=== PATIENT | male | born 1950 | race Caucasian/White ===

== ENCOUNTER 2017-09-13 18:24 | Observation (INO) | payer MEDICARE ==
[~2017-09-13] VITALS: Ht 182.9 cm; Wt 122.2 kg
[2017-09-13] MEDS ORDERED: GLUCOPHAGE500 MG/TAB PO (18:48)
[2017-09-13] MEDS ORDERED: NORCO 325 MG-7.1 TAB PO (18:48)
[2017-09-13] MEDS ORDERED: PRINIVIL20 MG PO (18:49)
[2017-09-13] MEDS ORDERED: CELEXA10 MG PO (18:49)
[2017-09-13] MEDS ORDERED: NEURONTIN300 MG/CAP PO (18:50)
[2017-09-13] MEDS ORDERED: REQUIP 1MG T1 MG/TAB PO (18:50)
[2017-09-13 19:08] LABS: BASO # 0.1 (0.0-0.2); BASO % 0.9 % (0.0-2.0); EOS # 0.3 (0.0-0.7); GRAN # 3.4 (1.4-6.5); GRAN % 51.2 % (42.2-75.2); HEMATOCRIT 40.3 % (42.0-52.0); HEMOGLOBIN 14.2 g/dl (13.5-18.0); LYMPH # 2.4 (1.2-3.4); LYMPH % 36.3 % (20.0-51.0); MEAN CELL VOLUME 94 fl (80.0-100.0); MEAN CORPUSCULAR HEMOGLOBIN 33 pg (27.0-31.0); MEAN CORPUSCULAR HGB CONC 35 g/dl (33.0-37.0); MEAN PLATELET VOLUME 10.5 fl (7.4-10.4); MONO # 0.5 (0.1-0.6); MONO % 7.5 % (1.7-9.3); PLATELET COUNT 153 K/mm3 (130-400); REDCELL DISTRIBUTION WIDTH-CV 12.3 % (11.5-14.5)
[2017-09-13 19:25] LABS: ALBUMIN 4.3 gm/dL (3.5-5.0); BILIRUBIN,TOTAL 0.6 mg/dL (0.0-1.0); CALCIUM 9.4 mg/dL (8.4-10.2); CREATININE, serum 0.93 mg/dL (0.66-1.25); POTASSIUM 4.3 mmol/L (3.4-5.0); TOTAL PROTEIN 7.2 gm/dL (6.4-8.2)
[2017-09-13 22:16] VITALS: BP 130/77; PULSE 68; TEMP 68
[2017-09-14 04:22] VITALS: BP 130/69; PULSE 72; TEMP 98.3
[2017-09-14 07:11] LABS: BASO # 0.1 (0.0-0.2); BASO % 0.9 % (0.0-2.0); EOS # 0.3 (0.0-0.7); EOS % 5.5 % (0-4.0); GRAN # 2.8 (1.4-6.5); GRAN % 47.8 % (42.2-75.2); HEMATOCRIT 37.8 % (42.0-52.0); HEMOGLOBIN 12.9 g/dl (13.5-18.0); LYMPH # 2.2 (1.2-3.4); LYMPH % 37.1 % (20.0-51.0); MEAN CELL VOLUME 96 fl (80.0-100.0); MEAN CORPUSCULAR HEMOGLOBIN 33 pg (27.0-31.0); MEAN CORPUSCULAR HGB CONC 34 g/dl (33.0-37.0); MONO # 0.5 (0.1-0.6); MONO % 8.5 % (1.7-9.3); PLATELET COUNT 132 K/mm3 (130-400); RED BLOOD COUNT 3.93 M/mm3 (4.20-5.60); REDCELL DISTRIBUTION WIDTH-CV 12.3 % (11.5-14.5)
[2017-09-14 07:28] LABS: ALBUMIN 3.4 gm/dL (3.5-5.0); BILIRUBIN,TOTAL 0.6 mg/dL (0.0-1.0); CALCIUM 8.6 mg/dL (8.4-10.2); CHOLESTEROL RISK RATIO 3.2; CREATININE, serum 0.82 mg/dL (0.66-1.25); TOTAL PROTEIN 5.9 gm/dL (6.4-8.2)
[2017-09-14 07:57] LABS: TSH w REFLEX 1.33 uIU/mL (0.465-4.680)
[2017-09-14 09:27] VITALS: BP 139/79; PULSE 60; TEMP 98.4
[2017-09-14] MEDS ORDERED: JANUVIA50 MG PO (09:57)
== END 2017-09-14 11:45 | disposition home or self-care (01) ==
LOC: COL.ER 18:24 → MEDICAL 20:34
PROVIDERS: Emergency Medicine; Nurse Practitioner Family
DX: E11.65 Type 2 diabetes mellitus with hyperglycemia (principal); E11.42 Type 2 diabetes mellitus with diabetic polyneuropathy; I10 Essential (primary) hypertension; G47.33 Obstructive sleep apnea (adult) (pediatric); F32.9 Major depressive disorder, single episode, unspecified; G25.81 Restless legs syndrome; F17.210 Nicotine dependence, cigarettes, uncomplicated; R94.5 Abnormal results of liver function studies; Z88.0 Allergy status to penicillin; Z79.4 Long term (current) use of insulin
CPT/HCPCS: G0378; J1650; J1815; J7030